=== PATIENT | female | born 1940 | race Caucasian/White ===

== ENCOUNTER 2022-06-29 13:44 | Outpatient (CLI) | payer MEDICARE | END 2022-06-29 23:59 | disposition home or self-care (01) | LOC: RAD 13:44 → EDBD 14:00 → RAD 23:59 | PROVIDERS: ATTEND Family Medicine | DX: R13.11 Dysphagia, oral phase (principal); R49.0 Dysphonia; M27.8 Other specified diseases of jaws; K22.89 Other specified disease of esophagus | CPT/HCPCS: 74230 ==